=== PATIENT | male | born 1960 | race Caucasian/White ===

== ENCOUNTER 2018-11-09 10:16 | Inpatient (IN) | payer BC, OTHER ==
[~2018-11-09] VITALS: Ht 175.3 cm; Wt 55.0 kg
[2018-11-12 08:30] VITALS: BP 134/85
== END 2018-11-12 11:30 | disposition home or self-care (01) | DRG 871 ==
LOC: ED 12:44 → EDIP 13:25 → 5SO 15:21 → DCLOUNGE 11-12 11:23
PROVIDERS: ADMIT Hospitalist; ATTEND Hospitalist
DX: A41.9 Sepsis, unspecified organism (principal); J15.9 Unspecified bacterial pneumonia; K85.20 Alcohol induced acute pancreatitis without necrosis or infection; E46 Unspecified protein-calorie malnutrition; I42.6 Alcoholic cardiomyopathy; Z68.1 Body mass index [BMI] 19.9 or less, adult; D50.9 Iron deficiency anemia, unspecified; E83.39 Other disorders of phosphorus metabolism; E83.42 Hypomagnesemia; E86.0 Dehydration; E87.6 Hypokalemia; F10.10 Alcohol abuse, uncomplicated; F17.210 Nicotine dependence, cigarettes, uncomplicated; G62.9 Polyneuropathy, unspecified; I50.9 Heart failure, unspecified; I11.0 Hypertensive heart disease with heart failure; K70.10 Alcoholic hepatitis without ascites; K76.0 Fatty (change of) liver, not elsewhere classified; M79.89 Other specified soft tissue disorders; Z79.82 Long term (current) use of aspirin; Z71.3 Dietary counseling and surveillance; Z71.41 Alcohol abuse counseling and surveillance of alcoholic
CPT/HCPCS: 36415; 71045; 74177; 76700; 80053; 80061; 81001; 82607; 83605; 83690; 83735; 83880; 84100; 84145; 84439; 84443; 84478; 84484; 85025; 85610; 85730; 86704; 86705; 86706; 86707; 86803; 87040; 87340; 87350; 93005; 93306; 93970; 96361; 96365; 96375; G0378; J0456; J0696; J1170; J1650; J2405; J3480; Q9967; J2060; J2270; J3475; J7030; J7040; J7050

== ENCOUNTER → 2019-04-01 | Outpatient (CLI) | payer OTHER ==
[~2019-04-01] MED LIST: AMIO200T42 PO; ASPI-650 PO; ASPI81TA45 PO; AZIT250T89 PO; CARV12.52 PO; CARV6.2512 PO; CEFD300C37 PO; GABA-826 PO; HYDR-36 PO; LISI-167 PO; LISI-170 PO; MAGN400T36 PO; PHOS250T3 PO; POTA10TA11 PO; POTA20TA6 PO; RIVA20TA PO; TRAM50TA2 PO
== END | disposition home or self-care (01) ==
LOC: RAD 15:54
PROVIDERS: ATTEND Nurse Practitioner Family
DX: J43.9 Emphysema, unspecified (principal); J90 Pleural effusion, not elsewhere classified; I25.10 Atherosclerotic heart disease of native coronary artery without angina pectoris; I10 Essential (primary) hypertension; I42.9 Cardiomyopathy, unspecified; F17.200 Nicotine dependence, unspecified, uncomplicated
CPT/HCPCS: 71046

== ENCOUNTER 2019-04-03 10:35 | Inpatient (IN) | payer OTHER ==
[~2019-04-03] VITALS: Ht 180.3 cm; Wt 63.0 kg
[~2019-04-03 10:35] MED LIST changes: -AMIO200T42 PO; -CARV12.52 PO; -LISI-167 PO; -RIVA20TA PO
[2019-04-03 11:21] VITALS: BP 119/91
[2019-04-03] MEDS ORDERED: ASPI-650 PO (11:36)
[2019-04-03] MEDS ORDERED: CARV12.52 PO (11:38)
[2019-04-03] MEDS ORDERED: RIVA20TA PO (11:38)
[2019-04-03] MEDS ORDERED: PROPOFOL 10 MG/ML, 20ML ONE (12:25)
[2019-04-03] MEDS ORDERED: AMIODARONE 50 MG/ML, 3ML ONE (12:37)
[2019-04-03] MEDS: AMIODARONE 900 MG in DEXTROSE 5% 482 ML IV PRN (12:48)
[2019-04-03] MEDS ORDERED: FILTER 0.22 MICRON IV ONE (13:00)
[2019-04-03] MEDS ORDERED: AMIODARONE 150 MG in DEXTROSE 5% 100 ML IV ONE (13:00)
[2019-04-03 15:40] VITALS: BP 102/81
[2019-04-03 16:18] LABS: ANION GAP 8 mmol/L (5-15); CALCIUM 8.5 mg/dL (8.5-10.1); CHLORIDE 101 mmol/L (98-107); CHOLESTEROL, TOTAL 179 mg/dL (140-239); CREATININE 0.94 mg/dL (0.7-1.3); TRIGLYCERIDES 86 mg/dL (50-200); VLDL CHOLESTEROL 17 mg/dL (0-25)
[2019-04-03 16:22] LABS: CHOL/HDL RATIO 1.8; FREE T4 (FREE THYROXINE) 1.12 ng/dL (0.76-1.46); HDL CHOL % 55 % (26-37); HDL CHOLESTEROL (DIRECT) 98 mg/dL (40-60); LDL CHOLESTEROL,CALCULATED 64 mg/dL (54-169); LDL/HDL RATIO 0.7 (0.5-3.0); TROPONIN I 0.032 ng/mL (0.000-0.045)
[2019-04-03] MEDS: GABAPENTIN 100 MG CAPSULE PO SCH ×2 (16:56→21:07)
[2019-04-03] MEDS: MAGNESIUM OXIDE 400 MG TABLET PO SCH ×2 (16:57→21:08)
[2019-04-03] MEDS: RIVAROXABAN 20 MG TABLET PO SCH (16:57)
[2019-04-03 20:13] VITALS: BP 104/82
[2019-04-03] MEDS: CARVEDILOL 12.5 MG TABLET PO SCH (21:07)
[2019-04-03] MEDS: SODIUM CHLORIDE FLUSH 10ML SYR IVF SCH (21:08)
[2019-04-03] MEDS: HYDROcodone/APAP 10/325 MG TABLET PO PRN (21:51)
[2019-04-03] MEDS ORDERED: ONDANSETRON 2MG/ML, 2ML IVPush PRN (23:00)
[2019-04-04] VITALS (7 sets, daily range): BP systolic 89–102; BP diastolic 61–75
[2019-04-04 05:50] LABS: MEAN CORPUSCULAR HEMOGLOBIN 38.4 pg (27.5-34.5); MEAN CORPUSCULAR HGB CONC 33.1 g/dL (33.2-36.2); MEAN CORPUSCULAR VOLUME 116.1 fL (81-97); MEAN PLATELET VOLUME 7.6 fL (7.4-10.4); PLATELET COUNT 250 x10^3/uL (130-400); RED BLOOD COUNT 3.13 x10^6/uL (4.38-5.82); RED CELL DISTRIBUTION WIDTH 16.6 % (9.4-14.8)
[2019-04-04 05:59] LABS: ANION GAP 8 mmol/L (5-15); CALCIUM 8.7 mg/dL (8.5-10.1); CHLORIDE 98 mmol/L (98-107)
[2019-04-04 06:00] LABS: CREATININE 1.04 mg/dL (0.7-1.3)
[2019-04-04] MEDS ORDERED: FILTER 0.22 MICRON IV PRN (06:00)
[2019-04-04] MEDS: AMIODARONE 900 MG in DEXTROSE 5% 482 ML IV PRN (06:30)
[2019-04-04 06:54] LABS: BASOPHILS # (AUTO) 0.02 x10^3/uL (0-0.1); BASOPHILS % (AUTO) 0 % (0-1); EOSINOPHILS # (AUTO) 0.01 x10^3/uL (0-0.4); EOSINOPHILS % (AUTO) 0 % (1-7); LYMPHOCYTES # (AUTO) 1.26 x10^3/uL (1-3.4); LYMPHOCYTES % (AUTO) 24 % (22-44); MD SCAN; MONOCYTES # (AUTO) 0.58 x10^3/uL (0.2-0.8); MONOCYTES % (AUTO) 11 % (2-9); NEUTROPHILS # (AUTO) 3.31 x10^3/uL (1.8-6.8); NEUTROPHILS % (AUTO) 64 % (42-75)
[2019-04-04] MEDS: MAGNESIUM OXIDE 400 MG TABLET PO SCH ×3 (08:57→20:09)
[2019-04-04] MEDS: CARVEDILOL 12.5 MG TABLET PO SCH (08:57)
[2019-04-04] MEDS: AMIODARONE 200 MG TABLET PO SCH ×2 (08:57→20:09)
[2019-04-04] MEDS: GABAPENTIN 100 MG CAPSULE PO SCH ×3 (08:57→20:09)
[2019-04-04] MEDS: SODIUM CHLORIDE FLUSH 10ML SYR IVF SCH ×2 (08:58→20:10)
[2019-04-04] MEDS: POTASSIUM CHLORIDE 10 MEQ TABLET.ER PO SCH (08:58)
[2019-04-04] MEDS ORDERED: LISINOPRIL 20 MG TABLET PO SCH (09:00)
[2019-04-04] MEDS: HYDROcodone/APAP 10/325 MG TABLET PO PRN (14:19)
[2019-04-04] MEDS: RIVAROXABAN 20 MG TABLET PO SCH (16:57)
[2019-04-04] MEDS ORDERED: ATORVASTATIN 20 MG TABLET PO SCH (21:00)
[2019-04-04] MEDS ORDERED: CARVEDILOL 12.5 MG TABLET PO SCH (21:00)
[2019-04-05 02:09] VITALS: BP 105/71
[2019-04-05 07:26] VITALS: BP 115/90
[2019-04-05] MEDS ORDERED: CARVEDILOL 6.25 MG TABLET PO SCH (08:00)
[2019-04-05] MEDS ORDERED: AMIO200T42 PO (08:12)
[2019-04-05] MEDS ORDERED: CARV6.2512 PO (08:12)
[2019-04-05] MEDS ORDERED: LISI-167 PO (08:12)
[2019-04-05] MEDS ORDERED: LISINOPRIL 10 MG TABLET PO SCH ×2 (09:00→21:00)
[2019-04-05] MEDS: POTASSIUM CHLORIDE 10 MEQ TABLET.ER PO SCH (09:02)
[2019-04-05] MEDS: MAGNESIUM OXIDE 400 MG TABLET PO SCH (09:03)
[2019-04-05] MEDS: GABAPENTIN 100 MG CAPSULE PO SCH (09:03)
[2019-04-05] MEDS: SODIUM CHLORIDE FLUSH 10ML SYR IVF SCH (09:04)
[2019-04-05] MEDS: AMIODARONE 200 MG TABLET PO SCH (09:04)
== END 2019-04-05 11:34 | disposition home or self-care (01) | DRG 309 ==
LOC: CACL 10:35 → ORIP 12:35 → 5SO 15:25
PROVIDERS: ADMIT Internal Medicine Cardiovascular Disease; ATTEND Internal Medicine Cardiovascular Disease
PROC: B24BZZ4 Ultrasonography of Heart with Aorta, Transesophageal (ICD-10-PCS; 2019-04-03)
PROC: 5A2204Z Restoration of Cardiac Rhythm, Single (ICD-10-PCS; principal; 2019-04-03 11:45)
DX: I48.92 Unspecified atrial flutter (principal); D68.69 Other thrombophilia; I50.22 Chronic systolic (congestive) heart failure; F10.10 Alcohol abuse, uncomplicated; G89.29 Other chronic pain; I11.0 Hypertensive heart disease with heart failure; I25.10 Atherosclerotic heart disease of native coronary artery without angina pectoris; I42.9 Cardiomyopathy, unspecified; I45.89 Other specified conduction disorders; Z87.891 Personal history of nicotine dependence; M54.9 Dorsalgia, unspecified
CPT/HCPCS: 36415; 71046; 80048; 80061; 84439; 84443; 84484; 85025; 92960; 93005; 93312; 93321; 93325; G0378; J2405; J2704; J0282; J7060

== ENCOUNTER 2019-07-17 13:08 | Emergency (ER) | payer OTHER ==
[~2019-07-17] VITALS: Ht 172.7 cm; Wt 61.4 kg
[~2019-07-17 13:08] MED LIST changes: +AMIO200T42 PO; +CARV12.52 PO; +LISI-167 PO; +RIVA20TA PO
--- NOTE | 2019-07-17 13:22 | NUR ---
pt ALEX WISE, transferred into [facility], changed into gown. given warm blanket for comfort, denies additional needs, NAD, call light within reach. Pt checked in by Parisa MURO, pt care and bedside report to Brayden MURO.
--- NOTE | 2019-07-17 13:25 | NUR ---
Tesha POTTS at bedside performing assessment and discussing plan of care with pt.
[2019-07-17] MEDS ORDERED: SODIUM CHLORIDE 0.9% 1,000 ML IV ONE (13:28)
[2019-07-17] MEDS ORDERED: SODIUM CHLORIDE FLUSH 10ML SYR IVF ONE (13:30)
[2019-07-17 13:54] LABS: MEAN CORPUSCULAR HEMOGLOBIN 37.5 pg (27.5-34.5); MEAN CORPUSCULAR HGB CONC 33.1 g/dL (33.2-36.2); MEAN CORPUSCULAR VOLUME 113.4 fL (81-97); PLATELET COUNT 336 x10^3/uL (130-400); RED CELL DISTRIBUTION WIDTH 20.4 % (9.4-14.8)
[2019-07-17 14:06] LABS: ALANINE AMINOTRANSFERASE 49 U/L (12-78); ALBUMIN 2.9 g/dL (3.4-5.0); ANION GAP 10 mmol/L (5-15); CALCIUM 8.9 mg/dL (8.5-10.1); CHLORIDE 111 mmol/L (98-107)
[2019-07-17 14:11] LABS: ALKALINE PHOSPHATASE 119 U/L (45-117); TOTAL PROTEIN 7.4 g/dL (6.4-8.2); TROPONIN I < 0.015 ng/mL (0.000-0.045)
--- NOTE | 2019-07-17 14:11 | NUR ---
PT RESTING IN [facility]. WATCHING TV. AWAITING LAB RESULTS. NO NEEDS AT THIS TIME
[2019-07-17 14:13] LABS: BILIRUBIN,TOTAL < 0.1 mg/dL (0.2-1.0)
[2019-07-17 14:26] LABS: BASOPHILS % (AUTO) 0 % (0-1); EOSINOPHILS # (AUTO) 0.06 x10^3/uL (0-0.4); EOSINOPHILS % (AUTO) 1 % (1-7); LYMPHOCYTES % (AUTO) 20 % (22-44); MD SCAN; MONOCYTES # (AUTO) 0.57 x10^3/uL (0.2-0.8); MONOCYTES % (AUTO) 9 % (2-9); NEUTROPHILS # (AUTO) 4.49 x10^3/uL (1.8-6.8); NEUTROPHILS % (AUTO) 70 % (42-75)
[2019-07-17 14:35] LABS: MICROSCOPIC INDICATED
[2019-07-17 14:41] LABS: CULTURE INDICATED? NO
--- NOTE | 2019-07-17 15:11 | NUR ---
PT RESTING IN [facility]. UP FOR RECHECK. PT IS WATCHING TV. VSTed. ROSARIO.
--- NOTE | 2019-07-17 15:38 | NUR ---
PT FAILED ROAD TEST
[2019-07-17 16:15] VITALS: BP 118/78
--- NOTE | 2019-07-17 16:43 | NUR ---
ATTEMPTED TO CALL . DID NOT ANSWER. LEFT A MESSAGE
--- NOTE | 2019-07-17 16:55 | NUR ---
PT WANTS TO GO HOME. HE RIPPED OUT HIS IV. TOOK OFF PULSE OX, MARBLE RUBBER, AND BP CUFF. ATTEMPTING TO CALL HIS AGAIN SO HE CAN GET A RIDE HOME
--- NOTE | 2019-07-17 17:27 | NUR ---
PT IS DEMANDING TO GO HOME. TRIED TO EDUCATE PT THAT IT MAY NOT BE SAFE FOR HIM TO LEAVE IN HIS CURRENT STATE. BUT HE WANTS TO LEAVE.
== END 2019-07-17 17:36 | disposition home or self-care (01) ==
LOC: ED 13:31
DX: K86.0 Alcohol-induced chronic pancreatitis (principal); R53.1 Weakness; F10.220 Alcohol dependence with intoxication, uncomplicated; I10 Essential (primary) hypertension; F17.200 Nicotine dependence, unspecified, uncomplicated; Y90.9 Presence of alcohol in blood, level not specified
CPT/HCPCS: 36415; 71045; 80053; 80307; 81001; 83690; 83880; 84484; 85025; 93005; 99285; J7030

== ENCOUNTER 2019-07-23 12:58 | Inpatient (IN) | payer OTHER ==
[~2019-07-23] VITALS: Ht 180.3 cm; Wt 62.5 kg
--- NOTE | 2019-07-23 13:27 | NUR ---
PT BIB EMS FOR LOWER BACK PAIN FOR 4-5 DAYS. INCREASED PAIN WHEN AMBULATING. PT STATES HIS LOWER LEGS ARE HARD TO MOVE. SENSATION INTACT. MILD WEAKENESS. PT ALSO DRINKS 4-5 OF VODKA. LAST DRINK 5 DAYS AGO. PT DENIES N/V/D. NO SOB OR CHEST PAIN. PT DENIES INJURY
[2019-07-23] MEDS ORDERED: SODIUM CHLORIDE 0.9% 1,000ML IVBOLUS ONE (14:00)
[2019-07-23] MEDS ORDERED: SODIUM CHLORIDE FLUSH 10ML SYR IVF ONE (14:00)
[2019-07-23] MEDS ORDERED: LORazepam 2 MG/ML, 1ML ONE ×2 (14:25→18:23)
[2019-07-23] MEDS: LORazepam 2 MG/ML, 1ML IVPush PRN ×4 (14:28→19:41)
[2019-07-23 14:37] LABS: MEAN CORPUSCULAR HEMOGLOBIN 36.9 pg (27.5-34.5); MEAN CORPUSCULAR HGB CONC 32.7 g/dL (33.2-36.2); PLATELET COUNT 235 x10^3/uL (130-400); RED BLOOD COUNT 2.73 x10^6/uL (4.38-5.82)
[2019-07-23 14:40] LABS: ALANINE AMINOTRANSFERASE 80 U/L (12-78); ANION GAP 18 mmol/L (5-15); CALCIUM 8.9 mg/dL (8.5-10.1); CHLORIDE 98 mmol/L (98-107); CREATININE 0.78 mg/dL (0.7-1.3); MICROSCOPIC AUTO
[2019-07-23 14:41] LABS: CULTURE INDICATED? NO
[2019-07-23 14:42] LABS: ALKALINE PHOSPHATASE 143 U/L (45-117); BILIRUBIN,TOTAL 1.1 mg/dL (0.2-1.0); TOTAL PROTEIN 7.9 g/dL (6.4-8.2)
--- NOTE | 2019-07-23 14:43 | NUR ---
MEDICATED PER ORDERS. PT TREMULOUS
[2019-07-23 15:06] LABS: MD YES
--- NOTE | 2019-07-23 15:50 | NUR ---
PT SLEEPING, GIVEN WATER. VSS. NO OTHER NEEDS AT THIS TIME. PT "FEELS BETTER AFTER ATIVAN"
[2019-07-23 16:16] LABS: BAND#(MANUAL) 0.41 x10^3/uL; BANDS%(MANUAL) 5 % (0-7); LYMPH#(MANUAL) 0.41 x10^3/uL (1-3.4); LYMPHS% (MANUAL) 5 % (22-44); MONOS#(MANUAL) 0.49 x10^3/uL (0.3-2.7); MONOS% (MANUAL) 6 % (2-9); SEGS% (MANUAL) 84 % (42-75)
[2019-07-23 16:17] LABS: <PLATELET ESTIMATE> ADEQUATE; <PLT MORPHOLOGY> NORMAL PLT MORPH; POLYCHROMASIA 1+
--- NOTE | 2019-07-23 16:20 | NUR ---
PT TREMULOUS. UNSTEADY ON FEET, UNSAFE TO AMBULATE
--- NOTE | 2019-07-23 18:24 | NUR ---
Tried to ambulate pt @ 181. Pt stated "still feel very shaky, legs feel very heavy, cant ambulate, can i have a little more time"
[2019-07-23] MEDS ORDERED: BUPR200T PO (18:51)
[2019-07-23] MEDS ORDERED: FURO40TA6 PO (18:51)
--- NOTE | 2019-07-23 19:02 | NUR ---
REPORT TO HILDA
[2019-07-23 19:35] VITALS: BP 162/106
[2019-07-23] MEDS: AMIODARONE 200 MG TABLET PO SCH (20:17)
[2019-07-23] MEDS: MAGNESIUM OXIDE 400 MG TABLET PO SCH (20:17)
[2019-07-23] MEDS: LIDODERM 5% PATCH TD SCH (20:17)
[2019-07-23] MEDS: GABAPENTIN 100 MG CAPSULE PO SCH (20:17)
[2019-07-23] MEDS: CARVEDILOL 6.25 MG TABLET PO SCH (20:17)
[2019-07-23] MEDS: THIAMINE 100MG TABLET PO SCH (20:18)
[2019-07-23] MEDS: RIVAROXABAN 20 MG TABLET PO SCH (20:18)
[2019-07-23] MEDS: LISINOPRIL 10 MG TABLET PO SCH (20:18)
[2019-07-23 20:53] VITALS: BP 141/87
[2019-07-23] MEDS: OXYcodone IR 5MG TABLET PO PRN (20:58)
[2019-07-23] MEDS: NICOTINE 14MG/24 HR PATCH.TD24 TD SCH (22:22)
[2019-07-24 00:32] VITALS: BP 146/87
[2019-07-24] MEDS: CARVEDILOL 6.25 MG TABLET PO SCH ×2 (06:05→18:02)
[2019-07-24] MEDS: OXYcodone IR 5MG TABLET PO PRN ×3 (06:10→23:05)
[2019-07-24 06:22] VITALS: BP 131/85
[2019-07-24] MEDS: GABAPENTIN 100 MG CAPSULE PO SCH ×3 (08:11→19:47)
[2019-07-24] MEDS: MULTIVITAMINS/MINERALS TABLET PO SCH (08:11)
[2019-07-24] MEDS: FOLIC ACID 1 MG TABLET PO SCH (08:11)
[2019-07-24] MEDS: THIAMINE 100MG TABLET PO SCH ×2 (08:12→19:47)
[2019-07-24] MEDS: MAGNESIUM OXIDE 400 MG TABLET PO SCH ×3 (08:12→19:46)
[2019-07-24] MEDS: AMIODARONE 200 MG TABLET PO SCH ×2 (08:12→19:47)
[2019-07-24] MEDS: POTASSIUM CHLORIDE 10 MEQ TABLET.ER PO SCH (08:12)
[2019-07-24] MEDS: LORazepam 2 MG/ML, 1ML IVPush PRN ×3 (08:12→19:47)
[2019-07-24 13:25] VITALS: BP 114/75
[2019-07-24] MEDS: CHLORDIAZEPOXIDE 25 MG CAPSULE PO PRN ×2 (17:10→22:21)
[2019-07-24 19:19] VITALS: BP_SYST 118; BP_SYST 93; BP_DIAS 62; BP_DIAS 73
[2019-07-24] MEDS: LIDODERM 5% PATCH TD SCH (19:46)
[2019-07-24] MEDS: LISINOPRIL 10 MG TABLET PO SCH (19:47)
[2019-07-24] MEDS: RIVAROXABAN 20 MG TABLET PO SCH (19:47)
[2019-07-24] MEDS: NICOTINE 14MG/24 HR PATCH.TD24 TD SCH (21:53)
[2019-07-25] MEDS: LORazepam 2 MG/ML, 1ML IVPush PRN (00:07)
[2019-07-25 00:39] VITALS: BP 139/93
[2019-07-25] MEDS ORDERED: LORazepam 2 MG/ML, 1ML IV PRN ×5 (01:30)
[2019-07-25] MEDS ORDERED: LORazepam 1MG TABLET PO PRN ×4 (01:30)
[2019-07-25] MEDS ORDERED: LORazepam 0.5MG TABLET PO PRN (01:30)
[2019-07-25] MEDS: CHLORDIAZEPOXIDE 25 MG CAPSULE PO PRN (04:32)
[2019-07-25] MEDS: CARVEDILOL 6.25 MG TABLET PO SCH ×2 (04:32→17:30)
[2019-07-25 05:40] LABS: MEAN CORPUSCULAR HEMOGLOBIN 37.4 pg (27.5-34.5); MEAN CORPUSCULAR HGB CONC 33.3 g/dL (33.2-36.2); MEAN CORPUSCULAR VOLUME 112.3 fL (81-97); MEAN PLATELET VOLUME 8.5 fL (7.4-10.4); PLATELET COUNT 197 x10^3/uL (130-400); RED CELL DISTRIBUTION WIDTH 18.7 % (9.4-14.8)
[2019-07-25 05:49] LABS: ALBUMIN 2.4 g/dL (3.4-5.0); ANION GAP 11 mmol/L (5-15); CHLORIDE 95 mmol/L (98-107)
[2019-07-25 06:01] LABS: ALANINE AMINOTRANSFERASE 46 U/L (12-78); ALKALINE PHOSPHATASE 101 U/L (45-117); BILIRUBIN,TOTAL 0.8 mg/dL (0.2-1.0); CREATININE 0.83 mg/dL (0.7-1.3); TOTAL PROTEIN 6.6 g/dL (6.4-8.2)
[2019-07-25 06:21] VITALS: BP 135/77
[2019-07-25 06:32] LABS: BASOPHILS # (AUTO) 0.02 x10^3/uL (0-0.1); BASOPHILS % (AUTO) 0 % (0-1); EOSINOPHILS # (AUTO) 0.11 x10^3/uL (0-0.4); EOSINOPHILS % (AUTO) 2 % (1-7); LYMPHOCYTES # (AUTO) 1.26 x10^3/uL (1-3.4); LYMPHOCYTES % (AUTO) 28 % (22-44); MD SCAN; MONOCYTES # (AUTO) 0.52 x10^3/uL (0.2-0.8); MONOCYTES % (AUTO) 12 % (2-9); NEUTROPHILS # (AUTO) 2.53 x10^3/uL (1.8-6.8); NEUTROPHILS % (AUTO) 57 % (42-75)
[2019-07-25] MEDS: FOLIC ACID 1 MG TABLET PO SCH (08:08)
[2019-07-25] MEDS: AMIODARONE 200 MG TABLET PO SCH ×2 (08:08→20:23)
[2019-07-25] MEDS: POTASSIUM CHLORIDE 10 MEQ TABLET.ER PO SCH (08:08)
[2019-07-25] MEDS: GABAPENTIN 100 MG CAPSULE PO SCH ×3 (08:08→20:24)
[2019-07-25] MEDS: MAGNESIUM OXIDE 400 MG TABLET PO SCH ×3 (08:08→20:23)
[2019-07-25] MEDS: MULTIVITAMINS/MINERALS TABLET PO SCH (08:08)
[2019-07-25] MEDS: THIAMINE 100MG TABLET PO SCH ×2 (08:08→20:23)
[2019-07-25] MEDS: ACETAMINOPHEN 500 MG TABLET PO SCH ×3 (08:08→20:23)
[2019-07-25] MEDS: OXYcodone IR 5MG TABLET PO PRN ×3 (08:16→20:24)
[2019-07-25 13:40] VITALS: BP 105/64
[2019-07-25 19:07] VITALS: BP 151/89
[2019-07-25] MEDS: LISINOPRIL 10 MG TABLET PO SCH (20:23)
[2019-07-25] MEDS: RIVAROXABAN 20 MG TABLET PO SCH (20:24)
[2019-07-25] MEDS: NICOTINE 14MG/24 HR PATCH.TD24 TD SCH (22:11)
[2019-07-26 00:07] VITALS: BP 113/75
[2019-07-26] MEDS: OXYcodone IR 5MG TABLET PO PRN ×4 (02:35→22:19)
[2019-07-26] MEDS: ACETAMINOPHEN 500 MG TABLET PO SCH ×4 (02:35→20:22)
[2019-07-26 05:29] LABS: MEAN CORPUSCULAR HEMOGLOBIN 37.2 pg (27.5-34.5); MEAN PLATELET VOLUME 7.7 fL (7.4-10.4); PLATELET COUNT 209 x10^3/uL (130-400); RED BLOOD COUNT 2.48 x10^6/uL (4.38-5.82); RED CELL DISTRIBUTION WIDTH 18.9 % (9.4-14.8)
[2019-07-26 05:36] LABS: ALBUMIN 2.4 g/dL (3.4-5.0); ANION GAP 8 mmol/L (5-15); CALCIUM 8.7 mg/dL (8.5-10.1); CHLORIDE 97 mmol/L (98-107)
[2019-07-26 05:40] VITALS: BP 153/88
[2019-07-26 05:40] LABS: ALANINE AMINOTRANSFERASE 44 U/L (12-78); ALKALINE PHOSPHATASE 120 U/L (45-117); BILIRUBIN,TOTAL 0.5 mg/dL (0.2-1.0); TOTAL PROTEIN 6.3 g/dL (6.4-8.2)
[2019-07-26] MEDS: CARVEDILOL 6.25 MG TABLET PO SCH ×2 (05:41→17:43)
[2019-07-26 05:56] LABS: BASOPHILS % (AUTO) 0 % (0-1); EOSINOPHILS # (AUTO) 0.09 x10^3/uL (0-0.4); EOSINOPHILS % (AUTO) 2 % (1-7); LYMPHOCYTES # (AUTO) 0.68 x10^3/uL (1-3.4); LYMPHOCYTES % (AUTO) 15 % (22-44); MD SCAN; MONOCYTES # (AUTO) 0.41 x10^3/uL (0.2-0.8); MONOCYTES % (AUTO) 9 % (2-9); NEUTROPHILS # (AUTO) 3.47 x10^3/uL (1.8-6.8); NEUTROPHILS % (AUTO) 75 % (42-75)
[2019-07-26 07:02] VITALS: BP 143/91
[2019-07-26] MEDS: LIDODERM 5% PATCH TD SCH ×2 (08:00→08:27)
[2019-07-26] MEDS: THIAMINE 100MG TABLET PO SCH ×2 (08:27→20:23)
[2019-07-26] MEDS: MAGNESIUM OXIDE 400 MG TABLET PO SCH ×3 (08:27→20:22)
[2019-07-26] MEDS: AMIODARONE 200 MG TABLET PO SCH ×2 (08:27→20:22)
[2019-07-26] MEDS: GABAPENTIN 100 MG CAPSULE PO SCH ×3 (08:27→20:23)
[2019-07-26] MEDS: FOLIC ACID 1 MG TABLET PO SCH (08:27)
[2019-07-26] MEDS: MULTIVITAMINS/MINERALS TABLET PO SCH (08:27)
[2019-07-26] MEDS: POTASSIUM CHLORIDE 20 MEQ TAB.ER.PRT PO SCH ×2 (08:27→17:42)
[2019-07-26] MEDS: POTASSIUM CHLORIDE 10 MEQ TABLET.ER PO SCH (08:45)
[2019-07-26 12:40] VITALS: BP 147/93
[2019-07-26] MEDS ORDERED: MAGNESIUM SULFATE PMX 2GM/50ML 50 ML IV ONE (15:30)
[2019-07-26 18:44] VITALS: BP 134/79
[2019-07-26] MEDS: LISINOPRIL 10 MG TABLET PO SCH (20:22)
[2019-07-26] MEDS: RIVAROXABAN 20 MG TABLET PO SCH (20:22)
[2019-07-26] MEDS: NICOTINE 14MG/24 HR PATCH.TD24 TD SCH (22:19)
[2019-07-27 01:08] VITALS: BP 143/95
[2019-07-27] MEDS: ACETAMINOPHEN 500 MG TABLET PO SCH ×4 (02:46→20:54)
[2019-07-27 05:42] VITALS: BP 148/92
[2019-07-27] MEDS: CARVEDILOL 6.25 MG TABLET PO SCH ×2 (05:43→18:10)
[2019-07-27] MEDS: OXYcodone IR 5MG TABLET PO PRN ×3 (05:44→18:11)
[2019-07-27 06:04] LABS: ANION GAP 6 mmol/L (5-15); CALCIUM 8.7 mg/dL (8.5-10.1); CHLORIDE 102 mmol/L (98-107); CREATININE 0.76 mg/dL (0.7-1.3)
[2019-07-27 06:18] VITALS: BP 145/90
[2019-07-27] MEDS: MULTIVITAMINS/MINERALS TABLET PO SCH (08:28)
[2019-07-27] MEDS: POTASSIUM CHLORIDE 10 MEQ TABLET.ER PO SCH (08:28)
[2019-07-27] MEDS: FOLIC ACID 1 MG TABLET PO SCH (08:28)
[2019-07-27] MEDS: GABAPENTIN 100 MG CAPSULE PO SCH ×3 (08:28→20:54)
[2019-07-27] MEDS: AMIODARONE 200 MG TABLET PO SCH ×2 (08:28→20:55)
[2019-07-27] MEDS: MAGNESIUM OXIDE 400 MG TABLET PO SCH ×3 (08:28→20:55)
[2019-07-27] MEDS: LIDODERM 5% PATCH TD SCH (08:29)
[2019-07-27] MEDS: THIAMINE 100MG TABLET PO SCH ×2 (08:33→20:59)
[2019-07-27 12:35] VITALS: BP 123/77
[2019-07-27] MEDS: RIVAROXABAN 20 MG TABLET PO SCH (20:54)
[2019-07-27] MEDS: LISINOPRIL 10 MG TABLET PO SCH (20:55)
[2019-07-27] MEDS: NICOTINE 14MG/24 HR PATCH.TD24 TD SCH (20:55)
[2019-07-27 21:23] VITALS: BP 131/84
[2019-07-28] MEDS: OXYcodone IR 5MG TABLET PO PRN ×4 (00:02→18:25)
[2019-07-28 02:04] VITALS: BP 121/79
[2019-07-28] MEDS: ACETAMINOPHEN 500 MG TABLET PO SCH ×4 (02:04→21:34)
[2019-07-28] MEDS: CARVEDILOL 6.25 MG TABLET PO SCH ×2 (05:48→17:01)
[2019-07-28 07:00] VITALS: BP 145/92
[2019-07-28] MEDS: THIAMINE 100MG TABLET PO SCH ×2 (09:05→21:34)
[2019-07-28] MEDS: POTASSIUM CHLORIDE 10 MEQ TABLET.ER PO SCH (09:05)
[2019-07-28] MEDS: AMIODARONE 200 MG TABLET PO SCH ×2 (09:05→21:34)
[2019-07-28] MEDS: LIDODERM 5% PATCH TD SCH (09:05)
[2019-07-28] MEDS: GABAPENTIN 100 MG CAPSULE PO SCH ×3 (09:05→21:35)
[2019-07-28] MEDS: FOLIC ACID 1 MG TABLET PO SCH (09:06)
[2019-07-28] MEDS: MULTIVITAMINS/MINERALS TABLET PO SCH (09:06)
[2019-07-28] MEDS: MAGNESIUM OXIDE 400 MG TABLET PO SCH ×3 (09:06→21:34)
[2019-07-28 15:36] VITALS: BP 126/78
[2019-07-28 19:49] VITALS: BP 125/80
[2019-07-28] MEDS: LISINOPRIL 10 MG TABLET PO SCH (21:33)
[2019-07-28] MEDS: RIVAROXABAN 20 MG TABLET PO SCH (21:34)
[2019-07-28] MEDS: NICOTINE 14MG/24 HR PATCH.TD24 TD SCH (21:34)
[2019-07-29 00:44] VITALS: BP 146/92
[2019-07-29] MEDS: OXYcodone IR 5MG TABLET PO PRN ×2 (00:54→08:02)
[2019-07-29] MEDS: ACETAMINOPHEN 500 MG TABLET PO SCH ×3 (02:00→11:42)
[2019-07-29] MEDS: CARVEDILOL 6.25 MG TABLET PO SCH (05:31)
[2019-07-29 07:20] VITALS: BP 134/86
[2019-07-29] MEDS: THIAMINE 100MG TABLET PO SCH (08:01)
[2019-07-29] MEDS: MAGNESIUM OXIDE 400 MG TABLET PO SCH ×2 (08:01→16:21)
[2019-07-29] MEDS: GABAPENTIN 100 MG CAPSULE PO SCH ×2 (08:02→16:21)
[2019-07-29] MEDS: AMIODARONE 200 MG TABLET PO SCH (08:02)
[2019-07-29] MEDS: MULTIVITAMINS/MINERALS TABLET PO SCH (08:02)
[2019-07-29] MEDS: FOLIC ACID 1 MG TABLET PO SCH (08:02)
[2019-07-29] MEDS: POTASSIUM CHLORIDE 10 MEQ TABLET.ER PO SCH (08:03)
[2019-07-29] MEDS ORDERED: FOLI-17 PO (13:19)
[2019-07-29] MEDS ORDERED: OXYC5TAB3 PO (13:19)
[2019-07-29] MEDS ORDERED: THIA100T67 PO (13:19)
[2019-07-29] MEDS ORDERED: MULT-484 PO (13:19)
[2019-07-29] MEDS ORDERED: LIDO700A20 TD (13:19)
[2019-07-29] MEDS ORDERED: GABA-826 PO (13:19)
[2019-07-29] MEDS ORDERED: ACET500T64 PO (13:19)
[2019-07-29 15:42] VITALS: BP 149/91
[2019-07-29] MEDS ORDERED: RIVAROXABAN 20 MG TABLET PO SCH (17:00)
== END 2019-07-29 16:49 | disposition home health service (06) | DRG 552 ==
LOC: ED 13:06 → EDIP 18:16 → 3N 19:18
PROVIDERS: ADMIT Family Medicine; ATTEND Family Medicine
DX: M48.061 Spinal stenosis, lumbar region without neurogenic claudication (principal); F10.239 Alcohol dependence with withdrawal, unspecified; I50.22 Chronic systolic (congestive) heart failure; D68.69 Other thrombophilia; E87.1 Hypo-osmolality and hyponatremia; I47.1 Supraventricular tachycardia; I48.20 Chronic atrial fibrillation, unspecified; K70.10 Alcoholic hepatitis without ascites; D53.9 Nutritional anemia, unspecified; M54.5 Low back pain; E83.42 Hypomagnesemia; E87.6 Hypokalemia; F17.200 Nicotine dependence, unspecified, uncomplicated; G56.00 Carpal tunnel syndrome, unspecified upper limb; G89.29 Other chronic pain; I11.0 Hypertensive heart disease with heart failure; M41.9 Scoliosis, unspecified; Z74.01 Bed confinement status; Z79.01 Long term (current) use of anticoagulants; Z80.3 Family history of malignant neoplasm of breast; Z71.6 Tobacco abuse counseling
CPT/HCPCS: 36415; 72148; 80048; 80053; 80074; 80307; 81001; 82607; 83735; 84443; 85025; 93005; 96360; G0378; J2060; J3475; J7030